=== PATIENT | male | born 1980 | race Caucasian/White ===

== ENCOUNTER 2017-12-29 13:48 | Emergency (ER) | payer MEDICARE ==
--- NOTE | 2017-12-29 16:23 | RAD ---
LEFT SHOULDER 3 VIEWS: Date: 12/29/17 HISTORY: Left shoulder pain. Left arm numbness and tingling. Left arm injury while lifting. FINDINGS: Humeral head is normally positioned. AC joint is normally aligned. No fracture, dislocation, or other abnormality identified. IMPRESSION: Unremarkable left shoulder. POS: [facility]
--- NOTE | 2017-12-29 16:23 | CT ---
CT CERVICAL SPINE NONCONTRAST: Date: 12/29/17 HISTORY: Neck injury. Left arm radiculopathy. FINDINGS: Vertebral body heights and alignment are maintained. Cervicothoracic junction is intact. No acute fra cture or dislocation. IMPRESSION: No acute osseous abnormalities of the cervical spine are demonstrated. POS: [facility]
== END 2017-12-29 16:26 | disposition home or self-care (01) ==
LOC: MADERS 13:48
DX: S43.402A Unspecified sprain of left shoulder joint, initial encounter (principal); M54.2 Cervicalgia; I10 Essential (primary) hypertension; Z79.899 Other long term (current) drug therapy; X50.1XXA Overexertion from prolonged static or awkward postures, initial encounter
CPT/HCPCS: 72125

== ENCOUNTER 2018-02-11 11:08 | Emergency (ER) | payer MEDICARE ==
--- NOTE | 2018-02-11 12:57 | RAD ---
LEFT HAND 3 VIEWS: Date: 02/11/18 HISTORY: Swelling. COMPARISON: None. FINDINGS: There is a linear radiopaque foreign object measuring approximately 3.0 x 1.0 mm in the lateral soft tissues of the index finger at the level of the distal interphalangeal joint. No acute fracture. Ther e is an ossicle of the distal ulnar styloid, likely from prior fracture. IMPRESSION: Linear small radiopaque foreign object as described. No acute fracture or malalignment. POS: [facility]
== END 2018-02-11 12:35 | disposition home or self-care (01) ==
LOC: MADERS 11:08
DX: S60.222A Contusion of left hand, initial encounter (principal); I10 Essential (primary) hypertension; Z79.899 Other long term (current) drug therapy; W20.8XXA Other cause of strike by thrown, projected or falling object, initial encounter
CPT/HCPCS: 99283

== ENCOUNTER 2018-03-29 19:09 | Emergency (ER) | payer MEDICARE, MEDICAID | END 2018-03-29 19:42 | disposition home or self-care (01) | LOC: MADERS 19:09 | DX: K02.9 Dental caries, unspecified (principal); I10 Essential (primary) hypertension; Z79.899 Other long term (current) drug therapy | CPT/HCPCS: 99282 ==

== ENCOUNTER 2018-05-16 09:26 | Emergency (ER) | payer MEDICARE, MEDICAID ==
[2018-05-16] MEDS ORDERED: Ketorolac Tromethamine 60 MG/2 ML VIAL ONE (09:52)
[2018-05-16] MEDS ORDERED: Clindamycin 150 MG CAP ONE (09:52)
== END 2018-05-16 10:00 | disposition home or self-care (01) ==
LOC: MADERS 09:26
DX: K04.7 Periapical abscess without sinus (principal); K02.9 Dental caries, unspecified; Z79.899 Other long term (current) drug therapy
CPT/HCPCS: 96372; J1885

== ENCOUNTER 2018-12-01 19:00 | Emergency (ER) | payer MEDICARE, MEDICAID ==
[2018-12-01] MEDS ORDERED: diphenhydrAMINE 25 MG CAP ONE (19:53)
[2018-12-01] MEDS ORDERED: predniSONE 20 MG TAB ONE ×2 (19:53)
== END 2018-12-01 20:00 | disposition home or self-care (01) ==
LOC: MADERS 19:00
DX: T78.40XA Allergy, unspecified, initial encounter (principal); I10 Essential (primary) hypertension; Z79.899 Other long term (current) drug therapy
CPT/HCPCS: 99283; J7506; Q0163